=== PATIENT | male | born 1990 | race Caucasian/White ===

== ENCOUNTER 2016-12-24 18:02 | Emergency (ER) | payer MEDICAID ==
[~2016-12-24] VITALS: Ht 172.7 cm; Wt 63.5 kg
[2016-12-24 18:24] VITALS: BP 163/97
[2016-12-24 18:59] LABS: Basophils # (auto) 0 uL; Basophils % (auto) 0.3 % (0.0-2.0); CONDITION Y; Eosinophils # (auto) 0.2 uL; Eosinophils % (auto) 1.6 % (0.0-7.0); Hematocrit 49.3 % (41.0-53.0); Lymphocytes # (auto) 0.8 uL; Lymphocytes % (auto) 8.3 % (10.0-50.0); Mean Corpuscular Hemoglobin 30.6 pg (28.0-32.0); Mean Corpuscular Hgb Conc. 34.5 g/dL (32.0-36.0); Mean Corpuscular Volume 88.7 fL (80.0-100.0); Monocytes # (auto) 0.7 uL; Monocytes % (auto) 7.8 % (0.0-12.0); Neutrophils # (auto) 7.9 uL; Platelet Count (auto) 386 10^3/uL (140-450); Red Cell Distribution Width 13.4 % (11.6-16.0); White Blood Cell 9.6 10^3/uL (4.4-10.8)
[2016-12-24 19:05] LABS: Albumin 4.9 g/dL (3.4-5.0); BUN/Creatinine Ratio 10.3; Calcium 9.8 mg/dL (8.5-10.1); Potassium 4.3 mmol/L (3.5-5.1)
[2016-12-24 19:07] LABS: Bilirubin, Total 0.8 mg/dL (0.2-1.0); Total Protein 9.1 g/dL (6.4-8.2)
== END 2016-12-24 19:27 | disposition left against medical advice (07) ==
LOC: ER 18:18
DX: R42 Dizziness and giddiness (principal); R53.1 Weakness; Z53.21 Procedure and treatment not carried out due to patient leaving prior to being seen by health care provider
CPT/HCPCS: 36415; 80053; 85025; 93005

== ENCOUNTER 2016-12-28 10:07 | Emergency (ER) | payer MEDICAID, OTHER ==
[~2016-12-28] VITALS: Ht 172.7 cm; Wt 63.5 kg
[2016-12-28] MEDS ORDERED: ETOMIDATE (2MG/ML) 20ML VIAL IV ONE (10:45)
[2016-12-28] MEDS ORDERED: SODIUM CHLORIDE 0.9% 1,000 ML IV ONE (10:45)
[2016-12-28 10:50] VITALS: BP 129/108
[2016-12-28] MEDS ORDERED: HYDROcodone-ACET 10/325MG TAB PO ONE (11:30)
== END 2016-12-28 12:14 | disposition home or self-care (01) ==
LOC: ER 10:10
DX: S43.004A Unspecified dislocation of right shoulder joint, initial encounter (principal); X50.9XXA Other and unspecified overexertion or strenuous movements or postures, initial encounter; Y93.89 Activity, other specified; Y92.89 Other specified places as the place of occurrence of the external cause; Y99.8 Other external cause status
CPT/HCPCS: 23650; 73030; 96360; 99152

== ENCOUNTER 2018-01-24 10:33 | Emergency (ER) | payer OTHER ==
[~2018-01-24] VITALS: Ht 172.7 cm; Wt 65.8 kg
[2018-01-24] MEDS ORDERED: SODIUM CHLORIDE 0.9% 1,000 ML IVB ONE (10:36)
[2018-01-24 14:52] LABS: Basophils # (auto) 0 uL; Basophils % (auto) 0.3 % (0.0-2.0); Eosinophils # (auto) 0.2 uL; Eosinophils % (auto) 2.3 % (0.0-7.0); Hematocrit 44.6 % (41.0-53.0); Hemoglobin 15.7 g/dL (13.5-17.5); Lymphocytes # (auto) 1.4 uL; Lymphocytes % (auto) 15.7 % (10.0-50.0); Mean Corpuscular Hemoglobin 31.5 pg (28.0-32.0); Mean Corpuscular Hgb Conc. 35.3 g/dL (32.0-36.0); Mean Corpuscular Volume 89.1 fL (80.0-100.0); Monocytes # (auto) 0.8 uL; Monocytes % (auto) 8.5 % (0.0-12.0); Neutrophils # (auto) 6.6 uL; Neutrophils % (auto) 73.2 % (37.0-80.0); Platelet Count (auto) 307 10^3/uL (140-450); Red Cell Distribution Width 12.8 % (11.8-14.3); White Blood Cell 9.1 10^3/uL (4.4-10.8)
[2018-01-24 15:14] LABS: Anion Gap 7 (5-15); BUN/Creatinine Ratio 8.8; Blood Alcohol < 3.0 mg/dL (0-5); Blood Urea Nitrogen 8 mg/dL (7-18); Calcium 8.6 mg/dL (8.5-10.1); Carbon Dioxide 26 mmol/L (21-32); Chloride 110 mmol/L (98-107); GFR African American 131 mL/min; GFR Non-African American 108 mL/min; Glucose 92 mg/dL (74-106); Potassium 4.1 mmol/L (3.5-5.1); Sodium 143 mmol/L (136-145)
[2018-01-24 15:59] VITALS: BP 115/65
== END 2018-01-24 15:44 | disposition home or self-care (01) ==
LOC: ER 10:33 → EDBD 10:33 → ER 15:44
DX: R55 Syncope and collapse (principal); F41.9 Anxiety disorder, unspecified; F17.210 Nicotine dependence, cigarettes, uncomplicated; F12.10 Cannabis abuse, uncomplicated; R51 Headache
CPT/HCPCS: 36415; 70450; 80048; 80320; 85025; 94761

== ENCOUNTER 2023-02-13 15:52 | Emergency (ER) | payer OTHER ==
[~2023-02-13] VITALS: Ht 175.3 cm; Wt 83.3 kg
[2023-02-13 18:35] VITALS: BP 126/88; PULSE 80; RESP 18; TEMP 97.9; O2SAT 96
== END 2023-02-13 17:49 | disposition home or self-care (01) ==
LOC: ER 15:52
DX: S02.2XXA Fracture of nasal bones, initial encounter for closed fracture (principal); S00.83XA Contusion of other part of head, initial encounter; H11.32 Conjunctival hemorrhage, left eye; F17.210 Nicotine dependence, cigarettes, uncomplicated; F12.10 Cannabis abuse, uncomplicated; F41.9 Anxiety disorder, unspecified; W22.8XXA Striking against or struck by other objects, initial encounter; Y93.89 Activity, other specified; Y92.89 Other specified places as the place of occurrence of the external cause; Y99.8 Other external cause status
CPT/HCPCS: 70486